=== PATIENT | female | born 2000 | race Caucasian/White ===

== ENCOUNTER 2020-08-23 21:57 | Emergency (ER) | payer OTHER, SELFPAY ==
[2020-08-23 22:08] VITALS: BP 174/89; PULSE 137; RESP 17; TEMP 36.8; O2SAT 97; BMI 26.5
[2020-08-23] MEDS: SODIUM CHLORIDE 0.9% 1,000 ML 1000 ML IV (22:25)
[2020-08-23 22:28] LABS: INR 1.1 (0.9-1.3); Prothrombin Time 12.3 SECONDS (10.1-12.7)
[2020-08-23 22:31] LABS: PTT Partial Thromboplastin Tim 31 SECONDS (26.4-36.2)
[2020-08-23 22:33] LABS: Alanine Aminotransferase 25 IU/L (<35); Albumin 4.4 g/dL (3.5-5.0); Albumin Globulin Ratio 1.3 (1.0-2.8); Alkaline Phosphatase 62 U/L (38-126); Aspartate Aminotransferase 29 IU/L (14-36); Bilirubin Total 0.4 mg/dL (0.2-1.3); Blood Urea Nitrogen 9 mg/dL (7-17); Calcium 9.3 mg/dL (8.4-10.2); Carbon Dioxide 29 mmol/L (22-32); Chloride 104 mmol/L (98-107); Estimated Glomerular Filt Rate > 60.0 mL/min (>60); Globulin 3.3 g/dL (1.7-4.1); Glucose 137 mg/dL (70-100); HEMOLYSIS < 15 (0-50); Lipase 38 U/L (23-300); Potassium 3.8 mmol/L (3.4-5.1); Sodium 137 mmol/L (137-145); Total Protein 7.7 g/dL (6.3-8.2)
[2020-08-23 22:34] LABS: Add Manual Diff / Slide Review NO; Basophils Absolute Auto 0 /uL (0-100); Basophils Percent Auto 0.4 % (0-2); Eosinophils Absolute Auto 400 /uL (0-450); Eosinophils Percent Auto 4.4 % (2-4); Hematocrit 42.5 % (36-46); Hemoglobin 14.6 g/dL (12.0-16.0); Lymphocytes Absolute Auto 1900 /uL (1100-4500); Lymphocytes Percent Auto 19.9 % (25-40); Mean Corpuscular HGB Conc 34.3 % (30-36); Mean Corpuscular Hemoglobin 29.6 PG (26-34); Mean Corpuscular Volume 86.1 fL (80-100); Monocytes Absolute Auto 600 /uL (0-900); Monocytes Percent Auto 6.4 % (3-14); Neutrophils Absolute Auto 6600 /uL (1500-7000); Neutrophils Percent Auto 68.9 % (50-75); Platelet Count 262 X10^3/uL (150-400); Red Blood Cell Count 4.93 X10^6/uL (4.0-5.2); Red Cell Distribution Width 13.1 % (11.6-14.8); White Blood Cell Count 9.6 X10^3/uL (4.5-11.0)
--- NOTE | 2020-08-23 22:39 | ED.NAVMDI ---
HPI - Nausea/Vomiting/Diarrhea General Chief complaint: Nausea/Vomiting/Diarrhea Stated complaint: abdominal cramps, nausea Time Seen by Provider: 08/23/20 22:38 Source: family Mode of arrival: Ambulatory Limitations: no limitations History of Present Illness HPI Narrative: This is a 20-year-old female comes emergency department with complaint of abdominal pain particularly epigastric. Nausea and vomiting and diarrhea. Patient states she had 1 very small episode of vomiting earlier today. She states she has had about 6 episodes of diarrhea. She denies any melena or hematochezia. She states she has not had any flank or back pain. She denies any urinary frequency, dysuria or sense of urgency. She denies any vaginal discharge or bleeding. She states she has been a little bit more short of breath recently since she ran out of her montelukast about 2 weeks ago. She states she wakes up in the morning needs to use her inhaler each morning but does not feel short of breath currently. She denies any chest pain or pressure. No fevers or chills. She states her roommate had similar symptoms with a lot of vomiting, she is unsure if she had any diarrhea about 2 weeks ago. She has not had any known sick contacts otherwise. She denies any other medical issues besides asthma and GERD. She supposed to be on the sha any, montelukast and omeprazole daily. She denies any prior surgeries. No allergies to medications. She does use tobacco. She states that she will drink a large amount of alcohol 2-3 times monthly but not on a daily basis. She denies any illicit. She is accompanied by her friend at bedside today. Related Data Home Medications Medication Instructions Recorded Confirmed albuterol sulfate [ProAir HFA] 1 - 2 puff INHALATION Q2-4H PRN 08/23/20 08/23/20 loratadine 10 mg PO DAILY 08/23/20 08/23/20 montelukast 10 mg PO DAILY 08/23/20 08/23/20 omeprazole 20 mg PO DAILY 08/23/20 08/23/20 Previous Rx's Medication Instructions Recorded montelukast 10 mg PO QPM #30 tab 08/23/20 Allergies Allergy/AdvReac Type Severity Reaction Status Date / Time No Known Drug Allergies Allergy Verified 08/23/20 22:17 Review of Systems Review of Systems ROS Unobtainable: All systems reviewed & are unremarkable except as noted in HPI and below Patient History Social History Smoking Status: Current every day smoker Smoking Status: Current every day smoker alcohol intake frequency: a few times a week Substance Use Type: marijuana Exam Narrative Exam Narrative: GENERAL: Alert and oriented x three, well-nourished female in mild distress. HEENT: Head normocephalic, atraumatic, EOMI, pupils reactive, face symmetric, moist mucous membranes NECK: Supple, full range of motion CARDIOVASCULAR: Tachycardic but Regular rate and rhythm without murmurs, rubs or gallops. RESPIRATORY: Breath sounds equal bilaterally, no wheezes rales or rhonchi. ABDOMEN: Soft, mild epigastric tenderness. Normoactive bowel sounds all 4 quadrants. No guarding or rebound, rigidity, no mass : No CVA tenderness EXTREMITIES: Normal range of motion, no clubbing or edema. Neurovascularly intact NEUROLOGICAL: Cranial nerves II through XII grossly intact. Moving all extremities SKIN: Warm, dry, no petechiae, no rashes or lesions. Initial Vital Signs Initial Vital Signs: Vital Signs Temperature 98.3 F 08/23/20 22:08 Pulse Rate 137 H 08/23/20 22:08 Respiratory Rate 17 08/23/20 22:08 Blood Pressure 174/89 H 08/23/20 22:08 Pulse Oximetry 97 08/23/20 22:08 Course Orders Ordered: ED Orders 08/23/20 22:14 EKG-12 Lead Stat 08/23/20 22:15 Complete Blood Count AUTO DIFF Stat Comprehensive Metabolic Panel Stat Lipase Stat Partial Thromboplastin Time Stat Prothrombin Time INR Stat Discontinued Medications Sodium Chloride (Normal Saline 0.9%) 1,000 mls @ 1,000 mls/hr IV BOLUS ONE Stop: 08/23/20 23:22 Last Infusion: 08/23/20 23:42 Dose: 0 mls/hr Documented by: Admin: 08/23/20 22:25 Dose: 1,000 mls/hr Documented by: DALE Ketorolac Tromethamine (Ketorolac 60 Mg/2 Ml Vial) 15 mg IV NOW ONE Stop: 08/23/20 22:48 Last Admin: 08/23/20 22:55 Dose: 15 mg Documented by: KGALLAG Ondansetron HCl (Ondansetron 4 Mg/2 Ml Inj) 4 mg IV NOW ONE Stop: 08/23/20 22:48 Last Admin: 08/23/20 22:55 Dose: 4 mg Documented by: MAXI Ondansetron HCl (Ondansetron 4 Mg Odt Prepack) 1 bottle MISC SEEINSTR ONE Stop: 08/23/20 23:38 Last Admin: 08/23/20 23:42 Dose: 1 bottle Documented by: MAXI Reevaluation(s) Reevaluation #1: Patient is feeling much better at this time heart rate is 80 on the monitor. She has some slight nausea but her pain significantly improved. Discussed plan for watchful waiting. She can advance her diet as tolerated tomorrow only clear liquids overnight and start with minimal amounts and then slowly increase. Patient feels comfortable with this plan. Time: 23:38 Vital Signs Vital signs: Vital Signs - 8 hr 08/23/20 22:08 08/23/20 23:47 Temperature 98.3 F Pulse Rate 137 H 95 H Respiratory Rate 17 18 Blood Pressure 174/89 H 124/77 Pulse Oximetry 97 97 MDM - Nausea/Vomiting/Diarrhea Lab Data Attestation: I reviewed the patient's lab results. Result diagrams: 08/23/20 22:15 08/23/20 22:15 Labs: Lab Results 08/23/20 08/23/20 08/23/20 Range/Units 22:15 22:15 22:15 WBC 9.6 (4.5-11.0) X10^3/uL RBC 4.93 (4.0-5.2) X10^6/uL Hgb 14.6 (12.0-16.0) g/dL Hct 42.5 (36-46) % MCV 86.1 (80-100) fL MCH 29.6 (26-34) PG MCHC 34.3 (30-36) % RDW 13.1 (11.6-14.8) % Plt Count 262 (150-400) X10^3/uL Neut % (Auto) 68.9 (50-75) % Lymph % (Auto) 19.9 L (25-40) % [place]w % (Auto) 6.4 (3-14) % Eos % (Auto) 4.4 H (2-4) % Baso % (Auto) 0.4 (0-2) % Neut # (Auto) 6600 (8923-1822) /uL Lymph # (Auto) 1900 (3380-1795) /uL [place]w # (Auto) 600 (0-900) /uL Eos # (Auto) 400 (0-450) /uL Baso # (Auto) 0 (0-100) /uL PT 12.3 (10.1-12.7) SECONDS INR 1.1 (0.9-1.3) APTT 31 (26.4-36.2) SECONDS Sodium 137 (137-145) mmol/L Potassium 3.8 (3.4-5.1) mmol/L Chloride 104 (98-107) mmol/L Carbon Dioxide 29 (22-32) mmol/L BUN 9 (7-17) mg/dL Creatinine 0.69 (0.52-1.04) mg/dL Estimated GFR > 60.0 (>60) mL/min BUN/Creatinine Ratio 13.0 (6-22) Glucose 137 H (70-100) mg/dL Calcium 9.3 (8.4-10.2) mg/dL Total Bilirubin 0.4 (0.2-1.3) mg/dL AST 29 (14-36) IU/L ALT 25 (<35) IU/L Alkaline Phosphatase 62 (38-126) U/L Total Protein 7.7 (6.3-8.2) g/dL Albumin 4.4 (3.5-5.0) g/dL Globulin 3.3 (1.7-4.1) g/dL Albumin/Globulin Ratio 1.3 (1.0-2.8) Lipase 38 (23-300) U/L Point of Care Testing Test Results Negative Urine Dip Bedside Urine Glucose Negative Bedside Urine Bilirubin - Negative Bedside Urine Ketone - Negative Urine Specific [place] 1.010 Bedside Urine Occult Blood - Negative Bedside Urine pH 6.5 Bedside Urine Protein - Negative Bedside Urine Urobilinogen - Negative Bedside Urine Nitrite - Negative Bedside Urine Leukocytes - Negative Esterase MDM Narrative Medical decision making narrative: A 20-year-old female comes emergency department with complaint of left-sided flank and some abdominal pain, nausea and 4 episodes of emesis. Patient labs do not show any major abnormalities, urine does not reveal any obvious infection. Patient did have some flank pain there is no hematuria present. Her symptoms resolved here in the department. Patient and father and I discussed imaging and they defer. She has benign abdominal exam with improvement of her vital signs after fluids. Plan for strict return precautions and patient returned home. Discharge Plan Departure Patient Disposition: Home Clinical Impression: Nausea vomiting and diarrhea Instructions: DI for Vomiting -- Adult Activity Restrictions/Additional Instructions: Follow up with your physician in the next week if her symptoms have not completely resolved. Also follow-up to make sure your refill your montelukast. Continue home medications as prescribed. You may take Zofran 1 tablet every 6 hours as needed for nausea. Return to the ER if you have fevers greater 100.4 F, persistent vomiting, persistent diarrhea, rapidly worsening abdominal pain, black or bloody stools severe abdominal or flank pain or other new or concerning symptoms. Prescriptions: New montelukast 10 mg tablet 10 mg PO QPM Qty: 30 RF: 0 No Action omeprazole 20 mg capsule,delayed release(DR/EC) 20 mg PO DAILY RF: 0 montelukast 10 mg tablet 10 mg PO DAILY RF: 0 albuterol sulfate [ProAir HFA] 90 mcg/actuation HFA aerosol inhaler 1 - 2 puff INHALATION Q2-4H PRN (Reason: Wheezing) RF: 0 loratadine 10 mg tablet 10 mg PO DAILY RF: 0
[2020-08-23] MEDS: KETOROLAC 60 MG/2 ML VIAL 15 MG IV (22:55)
[2020-08-23] MEDS: ONDANSETRON 4 MG/2 ML INJ IV (22:55)
[2020-08-23] MEDS: ONDANSETRON 4 MG ODT PREPACK 1 BOTTLE MISC (23:42)
[2020-08-23 23:47] VITALS: BP 124/77; PULSE 95; RESP 18; O2SAT 97
== END 2020-08-23 23:48 | disposition home or self-care (01) ==
PROVIDERS: Emergency Provider Emergency Medicine
DX: R11.2 Nausea with vomiting, unspecified (principal); R19.7 Diarrhea, unspecified; R10.13 Epigastric pain
CPT/HCPCS: 36415; 80053; 81003; 81025; 83690; 85025; 85610; 85730; 93005; 96361; 96374; 96375; 99281; 99284; J1885; J2405

== ENCOUNTER 2020-09-25 16:56 | Emergency (ER) | payer OTHER, SELFPAY ==
[2020-09-25 17:01] VITALS: BP 144/79; PULSE 101; RESP 14; TEMP 36.8; O2SAT 100; BMI 25.6
--- NOTE | 2020-09-25 20:08 | ED.SKABFB ---
HPI - Skin/Abscess/Foreign Bdy General Chief complaint: Skin/Abscess/Foreign Body Stated complaint: POSSIBLE ABSCESS' DOWN THERE Time Seen by Provider: 09/25/20 20:02 Source: patient Mode of arrival: Ambulatory Limitations: no limitations History of Present Illness HPI narrative: Patient is a 20-year-old female who presents with scabs over her pubic hair area. They have been there for a couple of days she is worried that they might be infected. She denies any drainage or raised area. She denies any fever chills no history of IV drug use. She has been shaving upwards in that area. complaint: lesion Related Data Home Medications Medication Instructions Recorded Confirmed albuterol sulfate [ProAir HFA] 1 - 2 puff INHALATION Q2-4H PRN 08/23/20 08/23/20 loratadine 10 mg PO DAILY 08/23/20 08/23/20 montelukast 10 mg PO DAILY 08/23/20 08/23/20 omeprazole 20 mg PO DAILY 08/23/20 08/23/20 Previous Rx's Medication Instructions Recorded montelukast 10 mg PO QPM #30 tab 08/23/20 Allergies Allergy/AdvReac Type Severity Reaction Status Date / Time No Known Drug Allergies Allergy Verified 09/25/20 17:00 Review of Systems Review of Systems Narrative: GENERAL: Denies chills,fever HEENT: Denies throat pain RESPIRATORY: Denies dyspnea, cough, wheezing CARDIOVASCULAR: Denies chest pain, palpitations GASTROINTESTINAL: Denies nausea, vomiting MUSCULOSKELETAL: Denies extremity pain, injury SKIN: See HPI NEUROLOGIC: Denies weakness, dizziness, headache, numbness 8 point review of systems is negative except for those stated above and HPI Patient History Social History Smoking Status: Current every day smoker Smoking Status: Current every day smoker alcohol intake frequency: a few times a week Substance Use Type: marijuana Exam Initial Vital Signs Initial Vital Signs: Vital Signs Temperature 98.3 F 09/25/20 17:01 Pulse Rate 101 H 09/25/20 17:01 Respiratory Rate 14 09/25/20 17:01 Blood Pressure 144/79 H 09/25/20 17:01 Pulse Oximetry 100 09/25/20 17:01 GENERAL: Well-appearing, well-nourished and in no acute distress. CARDIOVASCULAR: peripheral pulses in tact, cap refill <2 sec RESPIRATORY: No respiratory distress, speaks in full sentences without difficulty GUN: Pubic hair area is shaved. She has 2 small areas that are scabbed over there is no swelling or induration or gross pus. She has no surrounding erythema. Labia are within normal limits. EXTREMITIES: Normal range of motion, no clubbing or edema. Neurovascularly intact NEUROLOGICAL: Cranial nerves II through XII grossly intact. Normal gait and speech. SKIN: Course Vital Signs Vital signs: Vital Signs - 8 hr 09/25/20 17:01 09/25/20 20:22 Temperature 98.3 F Pulse Rate 101 H 77 Respiratory Rate 14 17 Blood Pressure 144/79 H 154/93 H Pulse Oximetry 100 99 MDM - Skin/Abscess/Foreign Bdy MDM Narrative Medical decision making narrative: There is no evidence of infection no abscesses. She has small scabs like a from ingrown hair Discharge Plan Departure Patient Disposition: Home Clinical Impression: Ingrown hair Instructions: DI for Abrasion Activity Restrictions/Additional Instructions: *You have been diagnosed with abrasion *What to do: Monitor areas at. I would refrain from shaving for a couple of days while they heal. May place Neosporin on these areas 1 to 2 times a day. I suspect that these areas are from ingrown hairs. *Continue to take medications as directed *Follow up with your primary care provider in 2-3 days *Return to ER if you should have redness pus swelling increased drainage or any new, worsening or concerning symptoms Prescriptions: No Action omeprazole 20 mg capsule,delayed release(DR/EC) 20 mg PO DAILY RF: 0 montelukast 10 mg tablet 10 mg PO DAILY RF: 0 albuterol sulfate [ProAir HFA] 90 mcg/actuation HFA aerosol inhaler 1 - 2 puff INHALATION Q2-4H PRN (Reason: Wheezing) RF: 0 loratadine 10 mg tablet 10 mg PO DAILY RF: 0 montelukast 10 mg tablet 10 mg PO QPM Qty: 30 RF: 0
[2020-09-25 20:22] VITALS: BP 154/93; PULSE 77; RESP 17; O2SAT 99
== END 2020-09-25 20:23 | disposition home or self-care (01) ==
PROVIDERS: Emergency Provider Emergency Medicine
DX: L73.1 Pseudofolliculitis barbae (principal)
CPT/HCPCS: 99281

== ENCOUNTER 2020-11-03 20:28 | Emergency (ER) | payer OTHER, SELFPAY ==
[2020-11-03 20:39] VITALS: BP 132/80; PULSE 118; RESP 30; TEMP 37.1; O2SAT 99
[2020-11-03] MEDS: SODIUM CHLORIDE 0.9% 1,000 ML 1000 ML IV (21:01)
[2020-11-03 21:04] LABS: Add Manual Diff / Slide Review NO; Basophils Absolute Auto 0 /uL (0-100); Basophils Percent Auto 0.4 % (0-2); Eosinophils Absolute Auto 500 /uL (0-450); Eosinophils Percent Auto 6.3 % (2-4); Hematocrit 42.6 % (36-46); Hemoglobin 14.5 g/dL (12.0-16.0); Lymphocytes Absolute Auto 700 /uL (1100-4500); Lymphocytes Percent Auto 8.7 % (25-40); Mean Corpuscular Hemoglobin 30.3 PG (26-34); Monocytes Absolute Auto 700 /uL (0-900); Monocytes Percent Auto 8.2 % (3-14); Neutrophils Absolute Auto 6200 /uL (1500-7000); Neutrophils Percent Auto 76.4 % (50-75); Platelet Count 209 X10^3/uL (150-400); Red Blood Cell Count 4.79 X10^6/uL (4.0-5.2); Red Cell Distribution Width 13.2 % (11.6-14.8); White Blood Cell Count 8.1 X10^3/uL (4.5-11.0)
[2020-11-03 21:17] LABS: Alanine Aminotransferase 68 IU/L (<35); Albumin 4.3 g/dL (3.5-5.0); Albumin Globulin Ratio 1.3 (1.0-2.8); Alkaline Phosphatase 75 U/L (38-126); Aspartate Aminotransferase 58 IU/L (14-36); BUN Creatinine Ratio 16.7 (6-22); Bilirubin Total 0.3 mg/dL (0.2-1.3); Blood Urea Nitrogen 12 mg/dL (7-17); Calcium 9.4 mg/dL (8.4-10.2); Carbon Dioxide 27 mmol/L (22-32); Chloride 100 mmol/L (98-107); Estimated Glomerular Filt Rate > 60.0 mL/min (>60); Globulin 3.2 g/dL (1.7-4.1); Glucose 128 mg/dL (70-100); HEMOLYSIS < 15 (0-50); Sodium 135 mmol/L (137-145); Total Protein 7.5 g/dL (6.3-8.2)
[2020-11-03 21:20] LABS: Pregnancy Test Serum,Qual Negative (Negative)
[2020-11-03 21:24] LABS: COVID19 -Nasal RAPID Negative (Negative)
--- NOTE | 2020-11-03 21:51 | ED.GENADULT ---
HPI - General Adult General Chief complaint: Syncope Stated complaint: PASSED OUT FAINTED Time Seen by Provider: 11/03/20 20:43 Source: patient Mode of arrival: Ambulatory Limitations: no limitations History of Present Illness HPI narrative: Patient is a 20-year-old female who is otherwise healthy here for evaluation of a couple episodes where she stated that she passed out. The episodes that she describes she was standing looking in her covered for something to eat when she felt like things were closing in on her and she apparently passed out. This has happened a couple times this evening. Prior to the event she was not having chest pain or shortness of breath. No headache. There was no seizure-like activity. At the time of my evaluation she had had some fluids and was feeling somewhat better. Related Data Home Medications Medication Instructions Recorded Confirmed albuterol sulfate [ProAir HFA] 1 - 2 puff INHALATION Q2-4H PRN 08/23/20 08/23/20 loratadine 10 mg PO DAILY 08/23/20 08/23/20 montelukast 10 mg PO DAILY 08/23/20 08/23/20 omeprazole 20 mg PO DAILY 08/23/20 08/23/20 Previous Rx's Medication Instructions Recorded montelukast 10 mg PO QPM #30 tab 08/23/20 Allergies Allergy/AdvReac Type Severity Reaction Status Date / Time No Known Drug Allergies Allergy Verified 09/25/20 17:00 Review of Systems Constitutional Constitutional: Denies fever(s) ENT Ears, Nose, Mouth, and Throat: Denies vertigo and Denies dizziness Cardiovascular Cardiovascular: Reports system reviewed and no additional complaints, except as documented, Denies chest pain and Denies rapid heart rate Respiratory Respiratory: Reports system reviewed and no additional complaints, except as documented Gastrointestinal Gastrointestinal: Reports system reviewed and no additional complaints, except as documented Integumentary/Breasts Skin/Breast: Reports system reviewed and no additional complaints, except as documented Neurologic Neurologic: Denies vertigo and Denies dizziness Comments: Fainting Hematologic/Lymphatic On Anticoagulants: No Allergic/Immunologic Allergic/Immunologic: Reports system reviewed and no additional complaints, except as documented Patient History Medical History Asthma Social History Smoking Status: Current every day smoker Smoking Status: Current every day smoker alcohol intake frequency: a few times a week Substance Use Type: marijuana Exam Initial Vital Signs Initial Vital Signs: Vital Signs Temperature 98.8 F 11/03/20 20:39 Pulse Rate 118 H 11/03/20 20:39 Respiratory Rate 30 H 11/03/20 20:39 Blood Pressure 132/80 11/03/20 20:39 Pulse Oximetry 99 11/03/20 20:39 Const General: cooperative and comfortable Limitations: mental status not altered HENMT Head: normal to inspection and normocephalic Resp Effort & Inspection: normal respiratory effort Auscultation: clear to auscultation bilaterally Cardio Rate: regular rate Rhythm: regular rhythm Skin Lesions: no lesions Rashes: no rashes Neuro General: patient alert, patient awake and patient oriented x3 Cognition: normal cognition Speech: speech normal Extrem General: normal to inspection and capillary refill normal Psych Appearance: grossly normal and well kempt Course Orders Ordered: ED Orders 11/03/20 20:35 COVID19 -Nasal swab/Pre-Proc Stat 11/03/20 20:43 EKG-12 Lead Stat 11/03/20 20:55 Complete Blood Count AUTO DIFF Stat Comprehensive Metabolic Panel Stat Test Serum,Qual Stat Discontinued Medications Sodium Chloride (Normal Saline 0.9%) 1,000 mls @ 1,000 mls/hr IV BOLUS ONE Stop: 11/03/20 21:44 Last Admin: 11/03/20 21:01 Dose: 1,000 mls/hr Documented by: MAXI Vital Signs Vital signs: Vital Signs - 8 hr 11/03/20 21:56 Pulse Rate 91 H Respiratory Rate 18 Blood Pressure 123/60 Pulse Oximetry 96 Medical Decision Making Lab Data Lab results reviewed: Yes I reviewed the patient's lab results. Result diagrams: 11/03/20 20:55 11/03/20 20:55 Labs: Lab Results 11/03/20 11/03/20 11/03/20 Range/Units 20:35 20:55 20:55 WBC 8.1 (4.5-11.0) X10^3/uL RBC 4.79 (4.0-5.2) X10^6/uL Hgb 14.5 (12.0-16.0) g/dL Hct 42.6 (36-46) % MCV 89.0 (80-100) fL MCH 30.3 (26-34) PG MCHC 34.0 (30-36) % RDW 13.2 (11.6-14.8) % Plt Count 209 (150-400) X10^3/uL Neut % (Auto) 76.4 H (50-75) % Lymph % (Auto) 8.7 L (25-40) % [place] % (Auto) 8.2 (3-14) % Eos % (Auto) 6.3 H (2-4) % Baso % (Auto) 0.4 (0-2) % Neut # (Auto) 6200 (1724-7323) /uL Lymph # (Auto) 700 L (1490-2097) /uL [place] # (Auto) 700 (0-900) /uL Eos # (Auto) 500 H (0-450) /uL Baso # (Auto) 0 (0-100) /uL Sodium 135 L (137-145) mmol/L Potassium 4.0 (3.4-5.1) mmol/L Chloride 100 (98-107) mmol/L Carbon Dioxide 27 (22-32) mmol/L BUN 12 (7-17) mg/dL Creatinine 0.72 (0.52-1.04) mg/dL Estimated GFR > 60.0 (>60) mL/min BUN/Creatinine Ratio 16.7 (6-22) Glucose 128 H (70-100) mg/dL Calcium 9.4 (8.4-10.2) mg/dL Total Bilirubin 0.3 (0.2-1.3) mg/dL AST 58 H (14-36) IU/L ALT 68 H (<35) IU/L Alkaline Phosphatase 75 (38-126) U/L Total Protein 7.5 (6.3-8.2) g/dL Albumin 4.3 (3.5-5.0) g/dL Globulin 3.2 (1.7-4.1) g/dL Albumin/Globulin Ratio 1.3 (1.0-2.8) Serum , Qual (Negative) SARS-CoV-2 (PCR) Negative (Negative) 11/03/20 Range/Units 20:55 WBC (4.5-11.0) X10^3/uL RBC (4.0-5.2) X10^6/uL Hgb (12.0-16.0) g/dL Hct (36-46) % MCV (80-100) fL MCH (26-34) PG MCHC (30-36) % RDW (11.6-14.8) % Plt Count (150-400) X10^3/uL Neut % (Auto) (50-75) % Lymph % (Auto) (25-40) % [place] % (Auto) (3-14) % Eos % (Auto) (2-4) % Baso % (Auto) (0-2) % Neut # (Auto) (6696-5868) /uL Lymph # (Auto) (0225-5188) /uL [place] # (Auto) (0-900) /uL Eos # (Auto) (0-450) /uL Baso # (Auto) (0-100) /uL Sodium (137-145) mmol/L Potassium (3.4-5.1) mmol/L Chloride (98-107) mmol/L Carbon Dioxide (22-32) mmol/L BUN (7-17) mg/dL Creatinine (0.52-1.04) mg/dL Estimated GFR (>60) mL/min BUN/Creatinine Ratio (6-22) Glucose (70-100) mg/dL Calcium (8.4-10.2) mg/dL Total Bilirubin (0.2-1.3) mg/dL AST (14-36) IU/L ALT (<35) IU/L Alkaline Phosphatase (38-126) U/L Total Protein (6.3-8.2) g/dL Albumin (3.5-5.0) g/dL Globulin (1.7-4.1) g/dL Albumin/Globulin Ratio (1.0-2.8) Serum , Qual Negative (Negative) SARS-CoV-2 (PCR) (Negative) ECG Data Attestation: I personally reviewed and interpreted this ECG as follows: Prior ECG tracings: not available for review Interpretation: Sinus rhythm Ventricular rate 96 Normal QRS Normal QTC No ST T wave changes MDM Narrative Medical decision making narrative: Asymptomatic upon arrival. Was tachycardic in triage however had a normal heart rate on the EKG. Has a score of 0 on the Williams syncope Rule. I do suspect there symptoms are vasovagal. I did discuss syncope with her and her boyfriend at bedside. I feel we can hold on further workup for now. She was given return precautions and follow-up instructions. She expressed understanding and agreement. Discharge Plan Departure Patient Disposition: Home Clinical Impression: Syncope Instructions: Fainting Activity Restrictions/Additional Instructions: I do recommend you continue all of your medications as directed. Be sure to increase your fluid intake. Contact your primary provider for a follow-up. Return to the emergency department for any new or worsening symptoms Prescriptions: No Action omeprazole 20 mg capsule,delayed release(DR/EC) 20 mg PO DAILY RF: 0 montelukast 10 mg tablet 10 mg PO DAILY RF: 0 albuterol sulfate [ProAir HFA] 90 mcg/actuation HFA aerosol inhaler 1 - 2 puff INHALATION Q2-4H PRN (Reason: Wheezing) RF: 0 loratadine 10 mg tablet 10 mg PO DAILY RF: 0 montelukast 10 mg tablet 10 mg PO QPM Qty: 30 RF: 0
[2020-11-03 21:56] VITALS: BP 123/60; PULSE 91; RESP 18; O2SAT 96
--- NOTE | 2020-11-06 11:38 | PC.NURSE ---
late entry per RN IV Fluids discontinued at 2150 when discharged
== END 2020-11-03 21:56 | disposition home or self-care (01) ==
PROVIDERS: Emergency Provider Emergency Medicine
DX: R55 Syncope and collapse (principal); R00.0 Tachycardia, unspecified; Z20.822 Contact with and (suspected) exposure to COVID-19
CPT/HCPCS: 36415; 80053; 84703; 85025; 87635; 93005; 93010; 96360; 99284; C9803

== ENCOUNTER → 2024-07-30 16:44 | Outpatient (CLI) | payer OTHER, SELFPAY ==
[2024-07-30 17:35] LABS: Add Manual Diff / Slide Review NO; Basophils Absolute Auto 0 /uL (0-100); Basophils Percent Auto 0.2 % (0-2); Eosinophils Absolute Auto 300 /uL (0-450); Eosinophils Percent Auto 3.3 % (2-4); Hematocrit 34.7 % (36-46); Hemoglobin 11.9 g/dL (12.0-16.0); Lymphocytes Absolute Auto 1600 /uL (1100-4500); Lymphocytes Percent Auto 21.5 % (25-40); Mean Corpuscular HGB Conc 34.3 % (30-36); Mean Corpuscular Hemoglobin 29.9 PG (26-34); Mean Corpuscular Volume 87.3 fL (80-100); Monocytes Absolute Auto 500 /uL (0-900); Monocytes Percent Auto 6.7 % (3-14); Neutrophils Absolute Auto 5200 /uL (1500-7000); Neutrophils Percent Auto 68.3 % (50-75); Platelet Count 196 X10^3/uL (150-400); Red Blood Cell Count 3.97 X10^6/uL (4.0-5.2); Red Cell Distribution Width 13.1 % (11.6-14.8); White Blood Cell Count 7.6 X10^3/uL (4.5-11.0)
[2024-07-30 17:39] LABS: Appearance Urine UA CLEAR; Bilirubin Urine UA NEGATIVE (NEGATIVE); Color Urine UA YELLOW; Glucose Urine UA NEGATIVE (Negative); Ketones Urine UA NEGATIVE (NEGATIVE); Leukocyte Esterase Urine UA NEGATIVE (NEGATIVE); Nitrite Urine UA NEGATIVE (Negative); Occult Blood Urine UA NEGATIVE (Negative); Protein Urine UA NEGATIVE (Negative); Specific Gravity Urine UA 1.025 (1.000-1.035); Urobilinogen Urine UA 0.2 E.U./dL (0.2)
[2024-07-30 17:47] LABS: Natera Collection Specimen Collected
[2024-07-30 18:24] LABS: Hepatitis B Surface Antigen NEGATIVE s/c (NEGATIVE)
[2024-07-30 18:42] LABS: HIV 1 & 2 Ab/Ag 4th Gen Combo NEGATIVE (NEGATIVE); Hep C Virus Ab w/Reflex Quant NEGATIVE s/c (NEGATIVE)
[2024-08-01 03:36] LABS: RPR Screen Non Reactive (Non Reactive)
[2024-08-01 07:08] LABS: Varicella IgG Antibody Reactive (Non Reactive)
== END ==
PROVIDERS: PCP Student in an Organized Health Care Education/Training Program; Referring Provider Student in an Organized Health Care Education/Training Program; Visit Provider Student in an Organized Health Care Education/Training Program
DX: Z34.00 Encounter for supervision of normal first pregnancy, unspecified trimester (principal)
CPT/HCPCS: 80055; 81003; 86787; 86803; 86850; 86900; 86901; 87086; 87389

== ENCOUNTER → 2024-10-02 13:56 | Outpatient (CLI) | payer OTHER, SELFPAY ==
--- NOTE | 2024-10-02 13:58 | DI.US.S_ITS ---
PROCEDURE: US OB >= 14 WEEKS FETUS INDICATIONS: 20 week anatomy scan OUTSIDE/PRIOR DATING DATA: LMP-based estimated date of delivery (NORMA): 02/15/2025. First dating scan (date and location): 07/16/2024. Estimated date of delivery (NORMA) from first dating scan: 02/17/2025. The calculations are made using the working NORMA of 02/15/2025. TECHNIQUE: Real-time scanning was performed of the fetus, with image documentation and biometric measurements. Endovaginal scanning: No COMPARISON: None. FINDINGS: General: A single living intrauterine gestation is present. Presentation: Vertex. Placenta: Placental position is left anterior , without previa. Amniotic fluid index: 16.3 cm, normal range is 5-24 cm. Single deepest vertical pocket is 4.9 cm. heart rate: 157 beats per minute. Maternal cervical canal: 4.0 cm long. Normal lower limit is 2.5 cm. biometrics: Biparietal diameter: 5.0, 21 week 1 day Head circumference: 18.0 cm, 20 week 3 day Abdominal circumference: 14.8 cm, 20 week 0 day Femur length: 3.4 cm, 20 week 4 day Clinically estimated gestational age: 20 week 4 day Composite gestational age from present scan: 20 week 4 day Estimated weight and percentile: 346 g, 32 percentile Anatomic survey: Neuro: Ventricles are non-dilated at less than 10 mm. Cisterna magna is normal at 3-11 mm. Cerebellum is normal in size and morphology. Nuchal skin fold: Normal at less than 6 mm between 14-21 weeks gestational age. Face: Nose and lips, facial profile are normal. Spine: No evidence for spina bifida. Heart: 4-chambered heart is present, with normal ventricular outflow tracts. Diaphragm: Diaphragm is intact. Stomach: Left-sided stomach is present. Kidneys: No hydronephrosis. Normal is less than 5 mm in 2nd trimester, less than 7 mm in 3rd trimester. Cord: 3-vessel cord has orthotopic insertion. Bladder: Normal in size. Extremities: All 4 extremities identified. IMPRESSION: Single live intrauterine consistent with a 20 week 4 day gestation by current ultrasound Normal anatomic survey. Approved by: Gary Metz M.D. on 10/02/2024 at 17:45
== END ==
PROVIDERS: PCP Student in an Organized Health Care Education/Training Program; Referring Provider Student in an Organized Health Care Education/Training Program; Visit Provider Student in an Organized Health Care Education/Training Program
DX: Z36.89 Encounter for other specified antenatal screening (principal); Z3A.20 20 weeks gestation of pregnancy
CPT/HCPCS: 76811

== ENCOUNTER → 2024-11-17 08:11 | Outpatient (CLI) | payer OTHER, SELFPAY ==
[2024-11-17 09:16] LABS: Hematocrit 31.6 % (36-46); Hemoglobin 11.1 g/dL (12.0-16.0)
[2024-11-17 10:25] LABS: GTT (PREG) 1 Hour PP 50gm Dose 142 mg/dL (76-139)
== END ==
PROVIDERS: PCP Student in an Organized Health Care Education/Training Program; Referring Provider Student in an Organized Health Care Education/Training Program; Visit Provider Student in an Organized Health Care Education/Training Program
DX: Z34.92 Encounter for supervision of normal pregnancy, unspecified, second trimester (principal); Z3A.26 26 weeks gestation of pregnancy
CPT/HCPCS: 36415; 82950; 85014; 85018

== ENCOUNTER → 2024-11-23 08:03 | Outpatient (CLI) | payer OTHER, SELFPAY ==
[2024-11-23 10:06] LABS: Glucose 1 Hour Gest 142 mg/dL (76-180)
[2024-11-23 10:06] LABS: Glucose Fasting Gestational 79 mg/dL (76-95)
[2024-11-23 11:18] LABS: Glucose Tol Interp,Gestational INTERPRETATION
[2024-11-23 11:39] LABS: Glucose 2 Hour Gest 120 mg/dL (76-155)
[2024-11-23 11:49] LABS: Glucose 3 Hour Gest 77 mg/dL (76-140)
== END ==
PROVIDERS: PCP Student in an Organized Health Care Education/Training Program; Referring Provider Student in an Organized Health Care Education/Training Program; Visit Provider Student in an Organized Health Care Education/Training Program
DX: Z34.00 Encounter for supervision of normal first pregnancy, unspecified trimester (principal); R73.09 Other abnormal glucose
CPT/HCPCS: 36415; 82951; 82952

== ENCOUNTER → 2025-01-03 06:36 | Outpatient (CLI) | payer OTHER, SELFPAY ==
--- NOTE | 2025-01-03 06:37 | DI.US.S_ITS ---
PROCEDURE: US OB LIMITED INDICATIONS: LGA OUTSIDE/PRIOR DATING DATA: LMP-based estimated date of delivery (NORMA): 02/15/2025 First dating scan (date and location): 07/16/2024 Estimated date of delivery (NORMA) from first dating scan: 02/17/2025. The calculations are made using the working NORMA of 02/15/2025. TECHNIQUE: Real-time scanning was performed of the fetus, with image documentation and biometric measurements. Endovaginal scanning: Not performed COMPARISON: [facility], OB >= 14 WEEKS FETUS, 10/02/2024, 14:17. FINDINGS: General: A single living intrauterine gestation is present. Presentation: Vertex Placenta: Placental position is left anterior, without previa. Amniotic fluid index: 21.5 cm, normal range is 5-24 cm. Single deepest vertical pocket is 6.5 cm. heart rate: 147 beats per minute. Maternal cervical canal: Closed and measures 4.2 cm long. Normal lower limit is 2.5 cm. biometrics: Biparietal diameter: 8.9 cm, 35 weeks, 6 days. Head circumference: 31.8 cm, 35 weeks, 5 days. Abdominal circumference: 32.0 cm, 36 weeks, 0 day. Femur length: 6.8 cm, 34 weeks, 6 days. Clinically estimated gestational age: 33 weeks, 6 days. Composite gestational age from present scan: 35 weeks, 4 days. Estimated weight and percentile: 2734 g, 90%. IMPRESSION: 1. Single live intrauterine gestation with fetus in vertex presentation. heart rate is 147 beats per minute. Normal LADONNA at 21.5 cm. 2. Estimated weight is at 90%. We strive to produce accurate, complete, and clear reports of imaging services. To assist us in improving patient care, this report was composed using standard report templates and voice recognition software. Therefore, it may contain abnormal punctuation, insertions and/or omissions. Occasional wrong-word or sound-alike substitutions may occur. Though we review the report and make efforts to correct it, we do recommend that the report be read carefully in proper context to recognize any text inaccuracies. Dictated by: Barney Chiu M.D. on 01/03/2025 at 12:11 Approved by: Barney Chiu M.D. on 01/03/2025 at 12:14
== END ==
LOC: US 06:37
PROVIDERS: PCP Student in an Organized Health Care Education/Training Program; Referring Provider Student in an Organized Health Care Education/Training Program; Visit Provider Student in an Organized Health Care Education/Training Program
DX: O36.63X0 Maternal care for excessive fetal growth, third trimester, not applicable or unspecified (principal); Z3A.35 35 weeks gestation of pregnancy
CPT/HCPCS: 76815

== ENCOUNTER 2025-01-14 15:22 | Observation (INO) | payer OTHER, SELFPAY ==
[2025-01-14 16:16] LABS: Add Manual Diff / Slide Review NO; Hematocrit 34.0 % (36-46); Hemoglobin 11.9 g/dL (12.0-16.0); Lymphocytes Absolute Auto 1300 /uL (1100-4500); Mean Corpuscular HGB Conc 34.9 % (30-36); Mean Corpuscular Hemoglobin 29.5 PG (26-34); Mean Corpuscular Volume 84.4 fL (80-100); Platelet Count 87 X10^3/uL (150-400)
[2025-01-14 16:30] LABS: Alanine Aminotransferase 22 IU/L (<35); Albumin 3.4 g/dL (3.5-5.0); Albumin Globulin Ratio 1.1 (1.0-2.8); Alkaline Phosphatase 128 U/L (38-126); Blood Urea Nitrogen 6 mg/dL (7-17); Calcium 8.8 mg/dL (8.4-10.2); Carbon Dioxide 21 mmol/L (22-32); Chloride 108 mmol/L (98-107); Estimated Glomerular Filt Rate > 60 mL/min (>60); Globulin 3.0 g/dL (1.7-4.1); Glucose 106 mg/dL (70-99); HEMOLYSIS < 15 (0-50); Potassium 3.8 mmol/L (3.4-5.1); Sodium 134 mmol/L (137-145); Total Protein 6.4 g/dL (6.3-8.2); Uric Acid 6.3 mg/dL (2.5-6.2)
[2025-01-14 17:09] LABS: Protein (Total) Urine Random 16 mg/dL (0-12); Protein Creatinine Ratio Urine 0.27 GRAM/24H
--- NOTE | 2025-01-14 17:44 | PM.OBTRLD ---
Visit Information Visit Information Date of evaluation: 01/14/25 Primary OB Provider: Clara Casas Reason for Evaluation: Yes other Comments/Additional reasons for admission: This is a 24 yo G1 at 35w3d sent to L&D for evaluation of elevated blood pressure. She denies headache, vision changes, or new onset swelling. Good movement. No contractions. Vital Signs Vital Signs: BP 139/83 P114 T36.9 PFSH Medical History (Updated 07/27/24 @ 18:28 by Elo Tavarez) Herpes simplex Raynauds disease Asthma ADHD ABO incompatibility reaction History of prematurity Twin Surgical History (Updated 07/02/24 @ 15:09 by Damaris Lind RN) [place] teeth extracted Family History (Updated 07/02/24 @ 15:13 by Damaris Lind RN) Mother Multiple gestation Bipolar disorder Autoimmune disorder HLA B27 positive Father Hyperlipidemia Grandfather Throat cancer Prostate cancer Grandmother Heart disease Grandmother Cardiac murmur Brother No problems noted. Social History marital status: unmarried,living together household members: significant other, family (s/o's grandmother and sister) and friend(s) lives independently: Yes caregiver/support person: No housing: house pets and animals: Yes (cats, dogs) education level: high school occupational status: employed current occupational exposures/hazards: No special lorena needs: No travel history: over 6 months ago seatbelt use: always water heater temp set < 120 deg: Yes working smoke detector in home: Yes fire extinguisher in home: Yes carbon monox detector in home: Yes firearms in home: Yes firearms unloaded and locked: Yes do you feel safe at home: Yes (answered with s/o present) Tobacco: How many years used: 1 second hand exposure: No alcohol intake: former (~3-4/week when not ) substance use type: marijuana (not while /) during the past year weight has: increased > 10 lbs well-balanced diet: about half the time (I'm working on it) daily servings fruits/ve-4 caffeine: Yes (stopped drinking Red Bull, aware of 200mg limit) Type(s) of exercise: none additional social history: Pt did not state at the beginning of call that she had her S/O in the room and the call on speaker phone. Was not aware at the time of question that he was present when she was asked about safety. Objective Labs 01/14/25 15:48 01/14/25 15:48 Labs: Laboratory Results - last 24 hr 01/14/25 01/14/25 15:48 16:25 WBC 5.9 RBC 4.03 Hgb 11.9 L Hct 34.0 L MCV 84.4 MCH 29.5 MCHC 34.9 RDW 14.7 Plt Count 87 L Neut % (Auto) 66.8 Lymph % (Auto) 21.8 L [place] % (Auto) 9.0 Eos % (Auto) 2.3 Baso % (Auto) 0.1 Neut # (Auto) 4000 Lymph # (Auto) 1300 [place] # (Auto) 500 Eos # (Auto) 100 Baso # (Auto) 0 Sodium 134 L Potassium 3.8 Chloride 108 H Carbon Dioxide 21 L BUN 6 L Creatinine 0.58 Estimated GFR > 60 BUN/Creatinine Ratio 10.3 Glucose 106 H Uric Acid 6.3 H Calcium 8.8 Total Bilirubin 0.2 AST 26 ALT 22 Alkaline Phosphatase 128 H Total Protein 6.4 Albumin 3.4 L Globulin 3.0 Albumin/Globulin Ratio 1.1 U Random Total Protein 16 H Urine Creatinine 58.85 Protein/Creatinin Ratio 0.27 Evaluation Evaluation Baseline heart rate: 145 Variability: Moderate (6-25) monitor accelerations: Present Monitor Decelerations: Absent Category of Tracing: Reactive Diagnosis, Plan/Disposition Plan/Disposition Plan: This is a 24 yo G1 at 35w3d sent to L&D for evaluation of elevated blood pressure. CMP wnl. CBC with platelets of 87. P/C ratio of 0.27. Discussed case with Dr. Clara Mckay at [facility] who graciously accepted transfer. Discussed case with electronic wirer MFM at who recommends serial blood pressures, q4h labs, and 12 hour urine protein for further diagnosis. Patient is stable to drive to [facility] for further evaluation and treatment. OB Disposition: tertiary care transfer
== END 2025-01-14 17:49 | disposition home or self-care (01) ==
LOC: LABOR 15:24
PROVIDERS: Admitting Provider Student in an Organized Health Care Education/Training Program; PCP Student in an Organized Health Care Education/Training Program; Referring Provider Student in an Organized Health Care Education/Training Program; Visit Provider Student in an Organized Health Care Education/Training Program
DX: O26.893 Other specified pregnancy related conditions, third trimester (principal); R03.0 Elevated blood-pressure reading, without diagnosis of hypertension; Z3A.35 35 weeks gestation of pregnancy
CPT/HCPCS: 36415; 59025; 80053; 84550; 85025; G0378; G0379

== ENCOUNTER 2025-01-18 16:04 | Outpatient (CLI) | payer OTHER, SELFPAY ==
--- NOTE | 2025-01-18 16:12 | DI.US.S_ITS ---
PROCEDURE: US OB BIOPHYSICAL PROFILE INDICATIONS: well being OUTSIDE/PRIOR DATING DATA: Last menstrual period (LMP): Not provided. LMP-based estimated date of delivery (NORMA): 02/15/2025 First dating scan (date and location): 07/16/2024 Estimated date of delivery (NORMA) from first dating scan: 02/17/2025 The calculations are made using the clinical NORMA of 02/15/2025. TECHNIQUE: Real-time scanning was performed of the fetus, with image documentation. Biophysical profile was also obtained. Endovaginal scanning: Not performed. COMPARISON: [facility], OB LIMITED, 01/03/2025, 6:53. FINDINGS: General: A single living intrauterine gestation is present. Presentation: Vertex Placenta: Placental position is left anterior, without previa. Amniotic fluid index: 17.2 cm, normal range is 5-24 cm. Single deepest vertical pocket is 5.8 cm. heart rate: 155 beats per minute. Maternal cervical canal: 3.4 cm long. Normal lower limit is 2.5 cm. Clinically estimated gestational age: 36 weeks 0 days Biophysical profile: Tone: 2 points. Movement: 2 points. Respiration: 2 points. Largest pocket of fluid: 2 points. IMPRESSION: 1. Single live intrauterine at 36 weeks gestational age with vertex positioning. 2. Biophysical profile score is 8 of 8. 3. Nuchal cord x1. Approved by: Lisandro Bond M.D. on 01/18/2025 at 17:33
== END 2025-01-18 17:10 | disposition home or self-care (01) ==
LOC: LABOR 16:14 → OB 01-21 12:14
PROVIDERS: PCP Student in an Organized Health Care Education/Training Program; Referring Provider Student in an Organized Health Care Education/Training Program; Visit Provider Student in an Organized Health Care Education/Training Program
DX: Z34.03 Encounter for supervision of normal first pregnancy, third trimester (principal); Z3A.36 36 weeks gestation of pregnancy
CPT/HCPCS: 59025; 76819; G0378; G0379

== ENCOUNTER → 2025-01-21 14:26 | Outpatient (CLI) | payer OTHER, SELFPAY ==
[2025-01-22 14:46] LABS: Strep Grp B PCR POS for Grp B Strep
== END ==
PROVIDERS: PCP Student in an Organized Health Care Education/Training Program; Visit Provider Student in an Organized Health Care Education/Training Program
DX: Z34.93 Encounter for supervision of normal pregnancy, unspecified, third trimester (principal); Z3A.36 36 weeks gestation of pregnancy
CPT/HCPCS: 87653

== ENCOUNTER 2025-01-22 15:05 | Outpatient (CLI) | payer OTHER, SELFPAY ==
--- NOTE | 2025-01-22 15:25 | DI.US.S_ITS ---
PROCEDURE: US OB BIOPHYSICAL PROFILE INDICATIONS: PRE-ECLAMPSIA OUTSIDE/PRIOR DATING DATA: Working NORMA per prior report is 02/15/2025 TECHNIQUE: Real-time scanning was performed of the fetus for biophysical profile, with image documentation. COMPARISON: [facility], OB BIOPHYSICAL PROFILE, 01/18/2025, 16:41. FINDINGS: General: A single living intrauterine gestation is present. Presentation: Vertex. Placenta: Placental position is anterior , without previa. Amniotic fluid index: 7.4 cm, normal range is 5-24 cm. Single deepest vertical pocket is 5.1 cm. heart rate: 145 beats per minute. Clinically estimated gestational age: 36 weeks and 4 days Biophysical profile: Tone: 2 points. Movement: 2 points. Respiration: 2 points. Largest pocket of fluid: 2 points. Single nuchal cord. IMPRESSION: BPP is 8/8. Vertex presentation. LADONNA of 7.4, lower limit of normal. Single nuchal cord. Dictated by: Juan Daniel Garcia M.D. on 01/22/2025 at 16:49 Approved by: Juan Daniel Garcia M.D. on 01/22/2025 at 16:50
[2025-01-22 15:41] LABS: Add Manual Diff / Slide Review NO; Hematocrit 35.6 % (36-46); Hemoglobin 12.2 g/dL (12.0-16.0); Lymphocytes Absolute Auto 1500 /uL (1100-4500); Mean Corpuscular HGB Conc 34.3 % (30-36); Mean Corpuscular Hemoglobin 29.1 PG (26-34); Mean Corpuscular Volume 84.7 fL (80-100); Platelet Count 128 X10^3/uL (150-400)
[2025-01-22 15:56] LABS: Alanine Aminotransferase 18 IU/L (<35); Albumin 3.5 g/dL (3.5-5.0); Albumin Globulin Ratio 1.2 (1.0-2.8); Alkaline Phosphatase 129 U/L (38-126); Blood Urea Nitrogen 12 mg/dL (7-17); Calcium 9.5 mg/dL (8.4-10.2); Carbon Dioxide 20 mmol/L (22-32); Chloride 106 mmol/L (98-107); Estimated Glomerular Filt Rate > 60 mL/min (>60); Globulin 3.0 g/dL (1.7-4.1); Glucose 91 mg/dL (70-99); HEMOLYSIS < 15 (0-50); Potassium 4.3 mmol/L (3.4-5.1); Sodium 133 mmol/L (137-145); Total Protein 6.5 g/dL (6.3-8.2); Uric Acid 6.3 mg/dL (2.5-6.2)
[2025-01-22 16:04] LABS: Protein (Total) Urine Random 21 mg/dL (0-12); Protein Creatinine Ratio Urine 0.22 GRAM/24H
--- NOTE | 2025-01-22 16:22 | PM.OBTRLD ---
Visit Information Visit Information Date of evaluation: 01/22/25 Primary OB Provider: Clara Casas Reason for Evaluation: Yes non-stress test Comments/Additional reasons for admission: 24 yo G1 at 36w4d here for NST,BPP and labs for idiopathic thrombocytopenia and gHTN. [facility] Medical History (Updated 07/27/24 @ 18:28 by Elo Tavarez) Herpes simplex Raynauds disease Asthma ADHD ABO incompatibility reaction History of prematurity Twin Surgical History (Updated 07/02/24 @ 15:09 by Damaris Lind, JUAN R) [place] teeth extracted Family History (Updated 07/02/24 @ 15:13 by Damaris Lind RN) Mother Multiple gestation Bipolar disorder Autoimmune disorder HLA B27 positive Father Hyperlipidemia Grandfather Throat cancer Prostate cancer Grandmother Heart disease Grandmother Cardiac murmur Brother No problems noted. Social History marital status: unmarried,living together household members: significant other, family (s/o's grandmother and sister) and friend(s) lives independently: Yes caregiver/support person: No housing: house pets and animals: Yes (cats, dogs) education level: high school occupational status: employed current occupational exposures/hazards: No special lorena needs: No travel history: over 6 months ago seatbelt use: always water heater temp set < 120 deg: Yes working smoke detector in home: Yes fire extinguisher in home: Yes carbon monox detector in home: Yes firearms in home: Yes firearms unloaded and locked: Yes do you feel safe at home: Yes (answered with s/o present) Tobacco: How many years used: 1 second hand exposure: No alcohol intake: former (~3-4/week when not ) substance use type: marijuana (not while /) during the past year weight has: increased > 10 lbs well-balanced diet: about half the time (I'm working on it) daily servings fruits/ve-4 caffeine: Yes (stopped drinking Red Bull, aware of 200mg limit) Type(s) of exercise: none additional social history: Pt did not state at the beginning of call that she had her S/O in the room and the call on speaker phone. Was not aware at the time of question that he was present when she was asked about safety. Objective Labs 01/22/25 15:20 01/22/25 15:20 Labs: Laboratory Results - last 24 hr 01/22/25 15:20 WBC 7.3 RBC 4.20 Hgb 12.2 Hct 35.6 L MCV 84.7 MCH 29.1 MCHC 34.3 RDW 14.7 Plt Count 128 L Neut % (Auto) 67.7 Lymph % (Auto) 20.0 L [place] % (Auto) 9.9 Eos % (Auto) 2.2 Baso % (Auto) 0.2 Neut # (Auto) 4900 Lymph # (Auto) 1500 [place] # (Auto) 700 Eos # (Auto) 200 Baso # (Auto) 0 Sodium 133 L Potassium 4.3 Chloride 106 Carbon Dioxide 20 L BUN 12 Creatinine 0.71 Estimated GFR > 60 BUN/Creatinine Ratio 16.9 Glucose 91 Uric Acid 6.3 H Calcium 9.5 Total Bilirubin 0.3 AST 23 ALT 18 Alkaline Phosphatase 129 H Total Protein 6.5 Albumin 3.5 Globulin 3.0 Albumin/Globulin Ratio 1.2 U Random Total Protein 21 H Urine Creatinine 93.85 Protein/Creatinin Ratio 0.22 Evaluation Evaluation Baseline heart rate: 145 Variability: Moderate (6-25) monitor accelerations: Present Monitor Decelerations: Absent Category of Tracing: Reactive Diagnosis, Plan/Disposition Plan/Disposition Plan: 24 yo G1 at 36w4d here for NST/BPP/labs for idiopathic thrombocytopenia and ghtn. -labs wnl - platelets 128, p/c ratio 0.22 -NST reactive, BPP 8/8 OB Disposition: home
== END 2025-01-22 16:22 | disposition home or self-care (01) ==
LOC: LABOR 15:09 → OB 01-23 08:16
PROVIDERS: PCP Student in an Organized Health Care Education/Training Program; Referring Provider Student in an Organized Health Care Education/Training Program; Visit Provider Student in an Organized Health Care Education/Training Program
DX: O13.3 Gestational [pregnancy-induced] hypertension without significant proteinuria, third trimester (principal); O99.113 Other diseases of the blood and blood-forming organs and certain disorders involving the immune mechanism complicating pregnancy, third trimester; D69.3 Immune thrombocytopenic purpura; Z3A.36 36 weeks gestation of pregnancy
CPT/HCPCS: 59025; 76819; 80053; 84550; 85025; G0378; G0379

== ENCOUNTER 2025-01-24 19:10 | Inpatient (IN) | payer OTHER, SELFPAY ==
[2025-01-24 19:53] VITALS: BP 147/88
[2025-01-24 20:17] LABS: Add Manual Diff / Slide Review NO; Hematocrit 34.3 % (36-46); Hemoglobin 11.9 g/dL (12.0-16.0); Lymphocytes Absolute Auto 1500 /uL (1100-4500); Mean Corpuscular HGB Conc 34.8 % (30-36); Mean Corpuscular Hemoglobin 29.4 PG (26-34); Mean Corpuscular Volume 84.5 fL (80-100); Platelet Count 102 X10^3/uL (150-400)
[2025-01-24 20:26] LABS: Protein (Total) Urine Random 34 mg/dL (0-12); Protein Creatinine Ratio Urine 0.27 GRAM/24H
[2025-01-24 20:29] LABS: Alanine Aminotransferase 16 IU/L (<35); Albumin 3.5 g/dL (3.5-5.0); Albumin Globulin Ratio 1.1 (1.0-2.8); Alkaline Phosphatase 116 U/L (38-126); Blood Urea Nitrogen 9 mg/dL (7-17); Calcium 8.7 mg/dL (8.4-10.2); Carbon Dioxide 19 mmol/L (22-32); Chloride 106 mmol/L (98-107); Estimated Glomerular Filt Rate > 60 mL/min (>60); Globulin 3.2 g/dL (1.7-4.1); Glucose 106 mg/dL (70-99); HEMOLYSIS 51 (0-50); Potassium 4.2 mmol/L (3.4-5.1); Sodium 134 mmol/L (137-145); Total Protein 6.7 g/dL (6.3-8.2)
[2025-01-24] MEDS: CALCIUM CARBONATE 500 MG TAB 1000 MG PO (21:54)
[2025-01-25] MEDS: LACTATED RINGERS 1,000 ML 999 ML IV ×3 (04:43→17:55)
[2025-01-25] MEDS: AMPICILLIN 2,000 MG in SODIUM CHLORIDE 0.9% 100 ML 200 MG IV (05:57)
--- NOTE | 2025-01-25 07:16 | PM.OBHP.IH.1 ---
OB HPI Date/Time Date of admission: 01/25/25 History of Present Condition Chief complaint: induction NORMA Calculator Estimated Delivery Date Method Current WG Current Estimate 02/15/25 LMP (Certain) 37w 0d Other Estimates 02/17/25 Ultrasound #1 36w 5d : 1 Narrative: This is a 37w0d 24 yo G1 presenting for mIOL for gestational hypertension complicated by idiopathic thrombocytopenia. Patient admitted at 36wd for overnight ripening. Denies headaches, vision changes, increased swelling. Good movement. No contractions. GBS positive. care: good care Dating criteria OB: LMP confirmed by 1st trimester US Ultrasounds: normal 1st trimester US and normal mid trimester US Obstetrical complications: gestational hypertension Medical complications OB: none Indications Indication for induction OB: gestational HTN/pre-eclampsia Preadmission Labs Last OB Lab Results: Blood Type B Positive 01/24/25, 20:05 Antibody Screen Negative 01/24/25, 20:05 Hct, (36-46) 34.3 % L 01/24/25, 20:05 Hgb, (12.0-16.0) 11.9 g/dL L 01/24/25, 20:05 Hep Bs Antigen, (NEGATIVE) Negative s/c 07/30/24, 16:47 Hepatitis C Antibody, (NEGATIVE) Negative s/c 07/30/24, 16:47 Rubella Antibody, (>15) 8.0 IU/mL L 07/30/24, 16:47 VZV IgG Antibody, (Non Reactive) Reactive 07/30/24, 16:47 Glucose 1 Hr 50 gm, (76-139) 142 mg/dL H 11/17/24, 09:34 Group B Strep (PCR) Pos for grp b strep H 01/21/25, 14:30 Genetic Screens: Cell-free DNA: Normal Evaluation Evaluation Baseline heart rate: 145 Variability: Moderate (6-25) monitor accelerations: Present Monitor Decelerations: Absent Contraction Frequency (minutes): 2 Uterine Contraction Intensity: Strong/Firm Category of Tracing: Reactive Status: Category l Dilation (cm): 3 Effacement (%): 70 Dilation: 3-4 cm Effacement: 60-70% station: -2 Position of cervix: posterior Consistency: medium Graham score: 6 PFSH Medical History (Updated 07/27/24 @ 18:28 by Elo Tavarez) Herpes simplex Raynauds disease Asthma ADHD ABO incompatibility reaction History of prematurity Twin Surgical History (Updated 07/02/24 @ 15:09 by Damaris Lind RN) [place] teeth extracted Family History (Updated 07/02/24 @ 15:13 by Damaris Lind RN) Mother Multiple gestation Bipolar disorder Autoimmune disorder HLA B27 positive Father Hyperlipidemia Grandfather Throat cancer Prostate cancer Grandmother Heart disease Grandmother Cardiac murmur Brother No problems noted. Social History marital status: unmarried,living together household members: significant other, family (s/o's grandmother and sister) and friend(s) lives independently: Yes caregiver/support person: No housing: house pets and animals: Yes (cats, dogs) education level: high school occupational status: employed current occupational exposures/hazards: No special lorena needs: No travel history: over 6 months ago seatbelt use: always water heater temp set < 120 deg: Yes working smoke detector in home: Yes fire extinguisher in home: Yes carbon monox detector in home: Yes firearms in home: Yes firearms unloaded and locked: Yes do you feel safe at home: Yes (answered with s/o present) Smoking Status: Former smoker Tobacco: How many years used: 1 second hand exposure: No alcohol intake: former (~3-4/week when not ) substance use type: marijuana (not while /) during the past year weight has: increased > 10 lbs well-balanced diet: about half the time (I'm working on it) daily servings fruits/ve-4 caffeine: Yes (stopped drinking Red Bull, aware of 200mg limit) Type(s) of exercise: none additional social history: Pt did not state at the beginning of call that she had her S/O in the room and the call on speaker phone. Was not aware at the time of question that he was present when she was asked about safety. Meds Home Medications and Allergies Home Medications ?Medication ?Instructions ?Recorded ?Confirmed ?Type loratadine 10 mg tablet 10 mg PO DAILY 08/23/20 01/24/25 History vitamin-ferrous sulfate 1 tab PO DAILY 07/02/24 01/24/25 History 27 mg iron-folic acid 0.8 mg tablet fluticasone propionate 45 2 puff PO BID #12 grams 01/22/25 01/24/25 Rx mcg-salmeterol 21 mcg/actuation HFA inhaler (Advair HFA) Allergies Allergy/AdvReac Type Severity Reaction Status Date / Time No Known Drug Allergies Allergy Verified 01/24/25 21:25 OB Exam Vital signs Blood Pressure: 148/72 Narrative Exam Narrative: Breathing through contractions. Objective Labs 01/24/25 20:05 01/24/25 20:05 Labs: Laboratory Results - last 24 hr 01/24/25 01/24/25 19:20 20:05 WBC 7.2 RBC 4.05 Hgb 11.9 L Hct 34.3 L MCV 84.5 MCH 29.4 MCHC 34.8 RDW 14.9 H Plt Count 102 L Neut % (Auto) 66.8 Lymph % (Auto) 20.9 L [place] % (Auto) 9.8 Eos % (Auto) 2.1 Baso % (Auto) 0.4 Neut # (Auto) 4800 Lymph # (Auto) 1500 [place] # (Auto) 700 Eos # (Auto) 100 Baso # (Auto) 0 Sodium 134 L Potassium 4.2 Chloride 106 Carbon Dioxide 19 L BUN 9 Creatinine 0.59 Estimated GFR > 60 BUN/Creatinine Ratio 15.3 Glucose 106 H Calcium 8.7 Total Bilirubin 0.4 AST 29 ALT 16 Alkaline Phosphatase 116 Total Protein 6.7 Albumin 3.5 Globulin 3.2 Albumin/Globulin Ratio 1.1 U Random Total Protein 34 H Urine Creatinine 123.26 Protein/Creatinin Ratio 0.27 Blood Type B Positive Antibody Screen Negative Assessment and Plan Assessment and Plan Assessment and Plan narrative: 24 yo G1 at 37w0d here for mIOL for gHTN complicated by idiopathic thrombocytopenia. P/C ratio 0.27. Platelets 102. S/p 2 doses cytotec. GBS pos. -ashwin regularly, if space will start pitocin -GBS pos, ampicillin 1 dose in -anticipate vaginal deliveru Time-Based Coding :: 30 minutes spent with patient and on the chart (including review of chart, obtaining history, exam, reviewing outside data, placing orders, documenting exam and treatment plan, and counseling patient) on 01/25/2025.
[2025-01-25 07:26] VITALS: BP 148/72
[2025-01-25] MEDS: AMPICILLIN 1,000 MG in SODIUM CHLORIDE 0.9% 100 ML 200 MG IV ×3 (10:18→17:56)
[2025-01-25] MEDS: CALCIUM CARBONATE 500 MG TAB 1000 MG PO (10:22)
[2025-01-25] MEDS: OXYTOCIN PREMIX 30 UNIT/500 ML PLAST..BAG IV (10:33)
[2025-01-25] MEDS: ONDANSETRON 4 MG/2 ML INJ IV (10:39)
[2025-01-25 13:56] LABS: Add Manual Diff / Slide Review NO; Hematocrit 35.6 % (36-46); Hemoglobin 12.1 g/dL (12.0-16.0); Lymphocytes Absolute Auto 1300 /uL (1100-4500); Mean Corpuscular HGB Conc 33.9 % (30-36); Mean Corpuscular Hemoglobin 29.2 PG (26-34); Mean Corpuscular Volume 86.0 fL (80-100); Platelet Count 113 X10^3/uL (150-400)
--- NOTE | 2025-01-25 15:54 | P.PNOB_ITS ---
Date/Time Date Patient Seen: 01/25/25 Time Patient Seen: 15:55 Pain Control Pain control: tolerating well Pelvic Exam Dilation (cm): 4 Effacement (%): 70 station: -2 Amniotic membrane status: Ruptured Comments: AROM with check, clear fluid Contractions Monitor mode: External Pitocin rate (mU/min): 6 Contraction pattern: Regular Contraction intensity: Strong/Firm Status status: Category l Heart Rate Baseline: 145 Monitor Accelerations: Present Monitor Decelerations: Late (non recurrent) Monitor Variability: Moderate Assessment and Plan Assessment: induction ongoing Plan: continuous present management Comments: 24 yo G1 at 37w0d here for mIOL for gHTN complicated by idiopathic thromb ocytopenia. P/C ratio 0.27. Platelets 102. S/p 2 doses cytotec. GBS pos. -pitocin at 6; hard to titrate due to intermittent lates -GBS pos, ampicillin running -AROM with check, /-1
--- NOTE | 2025-01-25 18:51 | PM.OBPNLAB ---
Date/Time Date Patient Seen: 01/25/25 Time Patient Seen: 06:45 Pain Control Pain control: tolerating well Pelvic Exam Dilation (cm): 6 Effacement (%): 100 station: -1 Amniotic membrane status: Ruptured Contractions Contractions on admission: none Monitor mode: External Pitocin rate (mU/min): 0 Contraction pattern: Regular Contraction intensity: Strong/Firm Status status: Category l Heart Rate Baseline: 145 Monitor Accelerations: Present Monitor Decelerations: Episodic and Late Monitor Variability: Moderate Assessment and Plan Assessment: induction ongoing Comments: 24 yo G1 at 37w0d here for mIOL for gHTN complicated by idiopathic thrombocytopenia. P/C ratio 0.27. Platelets 102--improved to 112. S/p 2 doses cytotec. GBS pos. -pitocin now off for recurrent lates -GBS pos, ampicillin running -6/100/-1; patient very uncomfortable, considering epidural
--- NOTE | 2025-01-25 19:59 | PM.AN.REGBLK ---
Regional Block Pre-procedure Procedure: Continuous Lumbar Epidural for L&D Attending OB provider: Clara Casas PMH/ROS narrative: G1PO IOL for gestational hypertension. ROS negative with exception of asthma and GERD. PSH/Anesthesia history narrative: None Exam narrative: Mall 2, good dentition ASA Class: II Labs: Hct 35.6 % (36-46) L 01/25/25 13:34 Plt Count 113 X10^3/uL (150-400) L 01/25/25 13:34 Medications: Current Medications Generic Name Dose Route Start Last Admin Trade Name Freq PRN Reason Stop Dose Admin Acetaminophen 650 mg 01/25/25 07:24 Acetaminophen 325 Mg Tablet PO Q6H PRN Fever/Mild Pain (1-3) Calcium Carbonate 1,000 mg 01/24/25 19:43 01/25/25 10:22 Calcium Carbonate 500 Mg Tab PO 1,000 mg Q2HR PRN Administration Dyspepsia Carboprost Tromethamine 250 mcg 01/24/25 19:43 Carboprost 250 Mcg/Ml Ampul IM Q90M PRN Bleeding Diphenhydramine HCl 25 mg 01/25/25 19:57 Diphenhydramine 50 Mg/Ml Vial IV Q10M PRN Pruritis Ephedrine Sulfate 10 mg 01/25/25 19:57 Ephedrine 50 Mg/Ml Vial IV Q5M PRN Blood pressure decrease more than 20% of baseline. Oxytocin/Lactated Ringer's 30 unit in 500 mls @ 200 mls/hr 01/24/25 19:43 Oxytocin Premix IV CONT PRN Bleeding Protocol Tranexamic Acid 1,000 mg/ 100 mls @ 600 mls/hr 01/24/25 19:43 Sodium Chloride IV NOW PRN Bleeding Oxytocin/Lactated Ringer's 30 unit in 500 mls @ 2 mls/hr 01/25/25 04:34 01/25/25 10:33 Oxytocin Premix IV 2 milliunit/min TITRATE FARRAH 2 mls/hr Protocol Administration 2 MILLIUNIT/MIN Ampicillin Sodium 1,000 mg/ 100 mls @ 200 mls/hr 01/25/25 10:00 01/25/25 17:56 Sodium Chloride IV 200 mls/hr Q4H FARRAH Administration FENT 2MCG/ML BUPIV 0.125% EPI 200 mcg in 100 mls @ 8 mls/hr 01/25/25 20:00 Fentanyl/Bupiv/Ns 2mcg/Ml - 0.125% EPIDURAL CONT FARRAH Lidocaine HCl 20 ml 01/24/25 19:43 Lidocaine 1% 20 Ml INJ INTRA-OP PRN Post Delivery Methylergonovine Maleate 0.2 mg 01/24/25 19:43 Methylergonovine 0.2 Mg Tablet PO Q6HR PRN Heavy Bleeding Methylergonovine Maleate 0.2 mg 01/24/25 19:43 Methylergonovine 0.2 Mg/Ml Vial IM NOW PRN Bleeding Mineral Oil 30 ml 01/24/25 19:43 Mineral Oil 30 Ml Udc TOP PRN PRN Version Misoprostol 25 mcg 01/24/25 19:43 01/25/25 00:31 Misoprostol 25 Mcg Tablet VAG 25 mcg Q4H PRN Administration cervical ripening Misoprostol 400 mcg 01/24/25 19:43 Misoprostol 200 Mcg Tablet SL NOW PRN Bleeding Misoprostol 800 mcg 01/24/25 19:43 Misoprostol 200 Mcg Tablet [place] NOW PRN Bleeding Nalbuphine HCl 2.5 mg 01/25/25 19:57 Nalbuphine 20 Mg/Ml Ampul IV Q10M PRN Pruritis Naloxone HCl 0.2 mg 01/24/25 19:43 Naloxone 0.4 Mg/Ml Vial IV Q2MIN PRN Opiate Reversal Ondansetron HCl 4 mg 01/24/25 19:43 01/25/25 10:39 Ondansetron 4 Mg/2 Ml Inj IV 4 mg Q4HR PRN Administration Nausea And Vomiting Oxytocin 10 unit 01/24/25 19:43 Oxytocin 10 Unit/Ml Vial IM NOW PRN Bleeding Allergies: Allergies Allergy/AdvReac Type Severity Reaction Status Date / Time No Known Drug Allergies Allergy Verified 01/25/25 07:51 Procedure Insertion date: 01/25/25 Insertion time: 19:21 Prep/Local: 1% lidocaine (chloraprep skin prep, dry x 3 min) Interspace: L4-5 Patient position: sitting Needle: 17 gauge Tuohy Loss of resistance with: saline DOMINIQUE at (cm): 8 Catheter placed at SKIN (cm): 15 Catheter in SPACE (cm): 7 Sensory level: T10 Insertion: No CSF, No Blood, No Paresthesia with insertion, No Paresthesia with injection and No Test dose reaction Initial Medications TEST DOSE time: 19:29 BOLUS DOSE time: 19:52 BOLUS DOSE (mL): 7 BOLUS DOSE med: other (pump solution) Infusion INFUSION: 0.125% bupivacaine and with fentanyl 2 mcg/mL Initial rate (mL/hr): 8 Post-procedure Anesthesia date START: 01/25/25 Anesthesia time START: 19:21
--- NOTE | 2025-01-25 21:21 | PM.OBPNLAB ---
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 P/C ratio 0.27. Platelets 102--improved to 112. S/p 2 doses cytotec. GBS pos. -Category 2 strip intermittent throughout the day, now minimal variability with recurrent lates; recommend delivery for intolerance of labor -GBS pos, discontinue ampicillin, will give 2g ancef and 500 mg azithromycin -It was explained to the patient that a section is a surgery to deliver the baby through an incision in the abdominal wall and uterus. All procedures can be associated with risk and unforeseen complications, which can be immediate or delayed. Risks and complications of section include, but are not limited to: infection of the uterus, pelvic organs, or skin; inadvertent injury to internal organs such as the bowel, bladder, or possibly even the baby; blood loss, transfusion, and/or life-threatening hemorrhage requiring hysterectomy; blood clots in the legs, pelvic organs, or lungs; adverse reaction to medications or anesthesia during surgery; development of placenta accreta spectrum in a subsequent ; and increased risk of section in a subsequent . -Proceed with delivery
--- NOTE | 2025-01-25 21:27 | P.OP_ITS ---
Operative Date/Time/Diagnoses Date of procedure: 01/25/25 Time of procedure: 22:20 Pre-op diagnosis: intolerance of labor Post-op diagnosis: same Procedure & Clinicians Procedure: Primary Delivery Same procedure(s) as scheduled: Yes Indications: intolerance of labor Surgeon: Clara Casas Program Director/Music Director: Beth Srinivasan Reason for Program Director/Music Director: Unscheduled delivery Anesthesia Type: Epidural Operative Notes Findings: Normal uterus, ovaries, and tubes Closure Type: primary Specimen(s): cord blood Intraoperative meds administered: Pitocin Applied: Catheter Estimated Blood Loss (mL): 600 Procedure in detail: OPERATIVE COURSE: The patient was taken to the operating room where epidural anesthesia was dosed to a surgical level. She was then prepared and draped in the normal sterile fashion in the dorsal supine position with a leftward tilt. Anesthesia was tested and found to be adequate. A Pfannensteil skin incision was then made with the scalpel and carried through to the underlying layer of fascia with the scalpel. The fascia was incised in the midline and the incision extended laterally with the Mcelroy scissors. The superior aspect of the fascial incision was then grasped with Annamaria clamps, elevated with the help of the surgical technology instructor, and the underlying rectus muscles dissected off bluntly and sharply where needed. Attention was then turned to the inferior aspect of the incision which, in a similar fashion, was grasped, tented up with Annamaria clamps, and the rectus muscle dissected off bluntly and sharply with Mcelroy scissors. The rectus muscles were then in the midline, and the peritoneum was identified and entered bluntly. The peritoneal incision was then extended with good visualization of the bladder. Retraction was provided by the surgical technology instructor. The Noble retractor was then inserted and the vesicouterine peritoneum identified, grasped with pick-ups and entered sharply with the Metzenbaum scissors. The incision was then extended laterally and the bladder flap created digitally. The lower uterine segment was incised in a transverse fashion with the scalpel, with the surgical technology instructor providing suction. The uterine incision was then extended superolaterally by pulling superolaterally on both sides. Membranes were ruptured and fluid was clear. The 's head was flexed out of ROT position and delivered atraumatically, with fundal pressure by the surgical technology instructor. The nose and mouth were suctioned with bulb suction and the cord was clamped and cut. The was handed off to the waiting nursing staff. Cord blood was collected for Rh status. Cord gases were sent. . The placenta was then delivered with gentle cord traction. The uterus was then cleared of all clots and debris. The uterine incision was repaired with 0 vicryl in a running, locked fashion. A second layer of 0 monocryl was used to obtain excellent hemostasis. The gutters were cleared of all clots. Hysterotomy was investigated and found to be hemostatic. The fascia was reapproximated with 0 vicryl in a running fashion. The subcutaneous tissue was reapproximated with 3-0 vicryl. The skin was closed with 4-0 monocryl. The surgical technology instructor helped with retraction during closures. SPONGE AND NEEDLE COUNTS: Correct x3. DRESSING: Glue and telfa ANTICOAGULATION: SCDs applied prior to Surgery Preop antibiotics given (see MAR). The patient was taken to recovery room having tolerated procedure well. Complications: none Post-operative Condition: stable Disposition: PACU Aftercare: routine postop
[2025-01-25] MEDS: ACETAMINOPHEN IV 1,000 MG/100 ML VIAL 400 MG IV (22:17)
[2025-01-25] MEDS: AZITHROMYCIN 500 MG in DEXTROSE 5% IN WATER 250 ML 250 MG IV (22:17)
--- NOTE | 2025-01-25 22:31 | SUR.OPER ---
Supine on Padded OR bed, head on pillow, safety belt at thigh, arms secured on padded arm boards at <90 degrees abduction. Bump under right buttock. Legs uncrossed with pillow under knees, gel pad to heels, tape over blanket to lower legs.
[2025-01-25] MEDS: CEFAZOLIN VIAL 1 GM in SODIUM CHLORIDE 0.9% 100 ML IV (22:35)
[2025-01-25] MEDS: CEFAZOLIN 2 GM/100 ML PREMIX 100 ML IV (22:35)
--- NOTE | 2025-01-25 22:57 | SUR.OPER ---
Viable baby boy born on 2238 at 01/25/2025.
[2025-01-25 23:20] VITALS: BP 125/82; PULSE 103; RESP 21; TEMP 36.3; O2SAT 97
[2025-01-25 23:25] LABS: Base Excess Cord Venous Blood -7.4 (-7.7-1.9); Cord Venous Blood PO2 15.3 (17-41); HCO3 Cord Venous Blood 21.8; O2 Saturation Cord Venous Bld 13.3 (14-75)
[2025-01-25 23:26] VITALS: BP 117/58; PULSE 109; RESP 20; O2SAT 98
[2025-01-25 23:30] VITALS: BP 113/53; PULSE 100; RESP 20; O2SAT 98
[2025-01-25 23:31] LABS: Base Excess Cord Arterial Bld -9.5 (-9.0-1.8); CO2 Cord Arterial Blood 80.7 (40-71); HCO3 Cord Arterial Blood 22.6 (17-27); Oxygen Sat Cord Arterial Blood 4.4 (5-59); pH Cord Arterial Blood 7.06 (7.14-7.38)
[2025-01-26] MEDS: KETOROLAC 30 MG/ML VIAL IV ×2 (00:53→07:22)
[2025-01-26] MEDS: ACETAMINOPHEN 325 MG TABLET 650 MG PO ×2 (05:05→12:10)
[2025-01-26] MEDS: OXYCODONE IR 5 MG TABLET PO ×3 (09:45→21:48)
[2025-01-26] MEDS: DOCUSATE 100 MG CAPSULE PO (09:45)
[2025-01-26] MEDS: PRENATAL VIT,CALC/IRON/FOLIC 1 TABLET 1 TAB PO (09:45)
--- NOTE | 2025-01-26 10:20 | PM.OBPN.1 ---
Subjective - OB Subjective Patient comments: no complaints, pain well controlled, tolerating diet and flatus present baby status: doing well and nursing well [place] feeding status: exclusively breast feeding Narrative: This is a 24 yo G1 now P1 who delivered via pLTCS at 37w0d following IOL for gHTN. Pain well controlled. without difficulty. Date Patient Seen: 01/26/25 Exam Vital Signs (past 8 hours): Oxygen Delivery Method Room Air Narrative Exam Narrative: NAD, resting comfortably Objective Labs 01/25/25 13:34 01/24/25 20:05 Labs: Laboratory Results - last 24 hr 01/25/25 01/25/25 01/25/25 13:34 23:22 23:29 WBC 9.0 RBC 4.14 Hgb 12.1 Hct 35.6 L MCV 86.0 MCH 29.2 MCHC 33.9 RDW 14.9 H Plt Count 113 L Neut % (Auto) 75.3 H Lymph % (Auto) 14.1 L [place] % (Auto) 8.5 Eos % (Auto) 1.8 L Baso % (Auto) 0.3 Neut # (Auto) 6800 Lymph # (Auto) 1300 [place] # (Auto) 800 Eos # (Auto) 200 Baso # (Auto) 0 Cord ABG pH 7.06 L Cord ABG pCO2 80.7 H Cord ABG HCO3 22.6 Cord ABG Base Excess -9.5 L Cord ABG O2 Sat 4.4 L Cord VBG pH 7.176 L Cord VBG pCO2 59.0 H Cord VBG pO2 15.3 L Cord VBG HCO3 21.8 Cord VBG Base Excess -7.4 Cord VBG O2 Sat 13.3 L Assessment & Plan Plan day: 1 plan OB: routine care and routine postop care Time-Based Coding :: 30 minutes spent with patient and on the chart (including review of chart, obtaining history, exam, reviewing outside data, placing orders, documenting exam and treatment plan, and counseling patient) on 01/26/2025.
[2025-01-26] MEDS: SIMETHICONE 80 MG TABLET PO ×2 (10:36→14:25)
[2025-01-26 10:42] LABS: Add Manual Diff / Slide Review NO; Hematocrit 32.5 % (36-46); Hemoglobin 11.4 g/dL (12.0-16.0); Lymphocytes Absolute Auto 1600 /uL (1100-4500); Mean Corpuscular HGB Conc 35.2 % (30-36); Mean Corpuscular Hemoglobin 29.6 PG (26-34); Mean Corpuscular Volume 84.3 fL (80-100); Platelet Count 113 X10^3/uL (150-400)
[2025-01-26] MEDS: IBUPROFEN 600 MG TABLET PO ×2 (17:28→22:59)
[2025-01-27] MEDS: ACETAMINOPHEN 325 MG TABLET 650 MG PO ×4 (00:13→19:27)
[2025-01-27] MEDS: IBUPROFEN 600 MG TABLET PO ×3 (04:31→16:47)
[2025-01-27] MEDS: SIMETHICONE 80 MG TABLET PO ×3 (04:38→10:22)
[2025-01-27] MEDS: OXYCODONE IR 5 MG TABLET PO ×3 (08:28→16:47)
[2025-01-27] MEDS: DOCUSATE 100 MG CAPSULE PO (08:29)
[2025-01-27] MEDS: PRENATAL VIT,CALC/IRON/FOLIC 1 TABLET 1 TAB PO (08:29)
[2025-01-27] MEDS: MAGNESIUM HYDROXIDE 30 ML UDC PO (10:26)
[2025-01-27] MEDS: GABAPENTIN 300 MG CAPSULE PO (11:47)
--- NOTE | 2025-01-27 17:04 | P.DS_ITS ---
Discharge Providers Provider Date of admission: 01/24/25 19:10 Discharge Date: 01/27/25 Primary care physician: Clara Casas MD Consults: 01/24/25 19:43 Consult to Anesthesiology Urgent Comment: Consulting Provider: Anesthesiologist Reason for consultation: Epidural 01/26/25 00:07 Consult to Pv Design And Installation Technician Routine Comment: Discharge provider: Clara Casas MD Summary Hospital Course Date Patient Seen: 01/27/25 Diagnoses: Term GHTN PLTCS Hospital Course: This is a 24 yo G1 now P1 who underwent PLTCS for intolerance of labor at 37w0d following mIOL for GHTN. She has recovered well . She is ambulating without difficulty. She is well. She is urinating and passing flatus. Pain is moderately controlled. Will discharge with appropriate pain meds. Peripartum Data Infant Delivery Method: Section complications: none Status at Discharge Cognitive/behavioral status at discharge: oriented Functional status at discharge: independent ambulation Overall status at discharge: patient is back to baseline Time Spent with Patient Time attestation: Total time spent providing and/or coordinating discharge services: 30 minutes Time spent: Greater than 30 minutes Objective Labs 01/26/25 10:28 01/24/25 20:05 Exam Vital Signs (past 8 hours): Oxygen Delivery Method Room Air Narrative Exam Narrative: Slight discomfort, resting in bed Discharge Plan Discharge Plan Patient Disposition: Home Discharge orders & Medications Prescriptions: New acetaminophen 325 mg Tablet 650 mg PO Q6H Qty: 60 0RF docusate sodium 100 mg Capsule 100 mg PO DAILY Qty: 60 0RF ibuprofen 600 mg Tablet 600 mg PO Q6H Qty: 60 0RF oxycodone 5 mg Tablet 10 mg PO Q4H PRN (Reason: Pain, Moderate (4-6)) Qty: 24 0RF gabapentin 300 mg capsule 300 mg PO BID Qty: 14 0RF gabapentin 300 mg capsule 300 mg PO BID Qty: 14 0RF Continued fluticasone propion-salmeterol [Advair HFA] 45-21 mcg/actuation HFA aerosol inhaler 2 puff PO BID Qty: 12 0RF vit-ferrous sulfat-FA 27 mg iron- 0.8 mg tablet 1 tab PO DAILY loratadine 10 mg tablet 10 mg PO DAILY Follow up/Referrals: Clara Casas MD [Primary Care Provider, [facility]] - 03/08/25 3:30 pm Referral Note: Follow up for Baby Azam on Tuesday January 28, 2025 @ 3:30pm Follow up for Mom on Saturday March 08, 2025 @ 3:30pm Visit Report/Discharge Packet Stand Alone Forms: Patient Portal/API, Stroke Signs & Symptoms Discharge Data Primary Care Provider: Clara Casas Attending Provider: Clara Casas Admit Date/Time: 01/24/25 19:10
== END 2025-01-27 20:30 | disposition home or self-care (01) | DRG 787 ==
PROVIDERS: Admitting Provider Student in an Organized Health Care Education/Training Program; PCP Student in an Organized Health Care Education/Training Program; Referring Provider Student in an Organized Health Care Education/Training Program; Visit Provider Student in an Organized Health Care Education/Training Program
PROC: 10D00Z1 Extraction of Products of Conception, Low, Open Approach (ICD-10-PCS; CPT 59514; principal; 2025-01-25 23:45)
DX: O13.4 Gestational [pregnancy-induced] hypertension without significant proteinuria, complicating childbirth (principal); D69.3 Immune thrombocytopenic purpura; O99.113 Other diseases of the blood and blood-forming organs and certain disorders involving the immune mechanism complicating pregnancy, third trimester; O99.12 Other diseases of the blood and blood-forming organs and certain disorders involving the immune mechanism complicating childbirth; O76 Abnormality in fetal heart rate and rhythm complicating labor and delivery; Z3A.37 37 weeks gestation of pregnancy; Z37.0 Single live birth; O99.824 Streptococcus B carrier state complicating childbirth; O13.3 Gestational [pregnancy-induced] hypertension without significant proteinuria, third trimester; Z3A.36 36 weeks gestation of pregnancy
CPT/HCPCS: 36415; 59025; 59050; 59200; 76815; 76819; 80053; 82570; 82803; 84156; 84550; 85025; 86850; 86900; 86901; 87653; G0378; G0379; J0131; J0290; J0690; J1100; J1885; J2274; J2405; J2590